=== PATIENT | female | born 1990 | race Caucasian/White ===

== ENCOUNTER 2018-05-03 15:34 | Outpatient (REF) | payer BC, SELFPAY ==
--- NOTE | 2018-05-03 13:50 | PAPFT_PTH ---
PATIENT: Myah Carver LOC: [facility] U#:[id number] AGE/SX: 28/F ROOM: RE05/03/[address]: TASHIA Beverly : 1990 BED: DIS: 05/03/2018 SPEC #: [id number] RECD: 05/03/18 17:25 STATUS: ASTON REQ #: [id number] AARON: 05/03/18 13:[address]: Maribel Euceda DEPT: [facility] Cytology RECD BY: Olga Luna ENTERED: 05/03/18 17:25 SP TYPE: PAPFT OTHR DR: Brittny Garza DNP Tissues: 1 - CX/ENDOCX FOR PAP SMEARS Procedures: PAP THIN PREP/UVM Screening HPV DNA PROBE Comments: [id number]
[2018-05-08 15:29] LABS: Chlamydia Result Negative; GC Result Negative; Specimen Description CERVICAL
== END 2018-05-03 15:54 ==
LOC: LBN 15:34
PROVIDERS: PCP Nurse Practitioner Gerontology; Visit Provider Nurse Practitioner Family
DX: Z11.3 Encounter for screening for infections with a predominantly sexual mode of transmission (principal); Z12.4 Encounter for screening for malignant neoplasm of cervix
CPT/HCPCS: 87491; 87591; 88142; 87624

== ENCOUNTER 2018-06-03 16:23 | Outpatient (REF) | payer OTHER, SELFPAY ==
--- NOTE | 2018-06-03 15:00 | CER_PTH ---
PATIENT: Myah Carver LOC: [facility] U#:[id number] AGE/SX: 28/F ROOM: RE06/03/[address]: Jaron Layne MD : 1990 BED: DIS: 06/03/2018 SPEC #: [id number] RECD: 06/03/18 17:01 STATUS: ASTON WREN #: [id number] AARON: 06/03/18 15:[address]: Jaron Layne DEPT: Surgical Specimen RECD BY: Olga Luna ENTERED: 06/03/18 17:02 SP TYPE: CER OTHR DR: Brittny Garza, ANGIE Tissues: 1 - CERVICAL BIOPSY 2 - CERVICAL BIOPSY 3 - ENDOCERVICAL BX/CURRETTE Procedures: GROSS AND MICRO LEVEL 4 P16 IPEX Comments: [id number]
== END 2018-06-03 16:43 ==
LOC: LBN 16:23
PROVIDERS: PCP Nurse Practitioner Gerontology; Visit Provider Obstetrics & Gynecology
DX: N87.1 Moderate cervical dysplasia (principal); R87.610 Atypical squamous cells of undetermined significance on cytologic smear of cervix (ASC-US); B97.7 Papillomavirus as the cause of diseases classified elsewhere
CPT/HCPCS: 88305; 88342

== ENCOUNTER 2019-02-27 01:10 | Outpatient (CLI) | payer OTHER, SELFPAY ==
[2019-02-27 12:39] LABS: Abs Immature Grans 0.03 k/cumm (0.0-0.09); Absolute Basophil Count 0.02 k/cumm (0.0-0.2); Absolute Eosinophil Count 0.25 k/cumm (0.0-0.7); Absolute Lymphocyte Count 1.96 k/cumm (1.2-3.4); Absolute Monocyte Count 0.62 k/cumm (0.11-0.7); Absolute Neutrophil Count 4.05 k/cumm (1.2-6.7); Basophils % 0.3; Eosinophils % 3.6; HCT 42.1 % (36.0-46.0); HGB 14.2 g/dL (12.0-15.5); Immature Grans % 0.4; Lymphocytes % 28.3; Mean Corp. HGB Concentration 33.7 g/dL (32.0-36.0); Mean Corpuscular Hemoglobin 32.1 pg (27.0-33.0); Mean Corpuscular Volume 95.2 fL (80-95); Mean Platelet Volume 10.2 fL (8.0-11.0); Monocytes % 8.9; Neutrophils % 58.5; Platelet Count 293 x1000/uL (130-400); RBC 4.42 m/cumm (4.00-5.20); RBC Distribution Width 12.8 % (11.7-14.6); White Blood Cell Count 6.93 k/cumm (4.4-10.8)
[2019-02-27 13:20] LABS: ALT 24 U/L (14-59); AST 20 U/L (15-37); Albumin 4.5 g/dL (3.4-5.0); Alkaline Phosphatase 65 U/L (46-116); Anion Gap 6.7 mmol/L (3-11); BUN 10 mg/dL (7-18); Bilirubin, Total 0.6 mg/dL (0.2-1.0); CO2 30.3 mmol/L (21.0-32.0); Calcium 9.1 mg/dL (8.5-10.1); Chloride 103 mmol/L (98-107); Glucose 88 mg/dL (70-100); Potassium 4.4 mmol/L (3.5-5.1); Sodium 140 mmol/L (136-145); TSH (W/Ref FT4) 2.94 uIU/mL (0.36-3.74)
== END 2019-02-27 01:30 ==
PROVIDERS: PCP Family Medicine; Visit Provider Family Medicine
DX: F32.9 Major depressive disorder, single episode, unspecified (principal); Z79.899 Other long term (current) drug therapy
CPT/HCPCS: 36415; 80053; 84443; 85025

== ENCOUNTER 2019-04-07 09:04 | Outpatient (REF) | payer OTHER, SELFPAY ==
--- NOTE | 2019-04-07 08:20 | CER_PTH ---
PATIENT: Myah Carver LOC: [facility] U#:[id number] AGE/SX: 28/F ROOM: RE04/07/[address]: Jaron Layne MD : 1990 BED: DIS: 04/07/2019 SPEC #: [id number] RECD: 04/07/19 12:44 STATUS: ASTON REYadiel #: [id number] AARON: 04/07/19 08:[address]: Jaron Layne DEPT: Surgical Specimen RECD BY: Olga Luna ENTERED: 04/07/19 12:45 SP TYPE: CER OTHR DR: Richie Salgado MD Tissues: 1 - CERVICAL LEEP/LOOP 2 - ENDOCERVICAL BX/CURRETTE Procedures: GROSS AND MICRO LEVEL 4 Comments: [id number]
--- NOTE | 2019-04-07 08:20 | PAPFT_PTH ---
PATIENT: Myah Carver LOC: [facility] U#:[id number] AGE/SX: 28/F ROOM: RE04/07/[address]: Jaron Layne MD : 1990 BED: DIS: 04/07/2019 SPEC #: [id number] RECD: 04/07/19 12:56 STATUS: ASTON REYadiel #: [id number] AARON: 04/07/19 08:[address]: Jaron Layne DEPT: [facility] Cytology RECD BY: Olga Luna ENTERED: 04/07/19 12:56 SP TYPE: PAPFT OTHR DR: Richie Salgado MD Tissues: 1 - CX/ENDOCX FOR PAP SMEARS Procedures: PAP THIN PREP/UVM Screening HPV DNA PROBE Comments: [id number]
== END 2019-04-07 09:24 ==
LOC: LBN 09:04
PROVIDERS: PCP Family Medicine; Visit Provider Obstetrics & Gynecology
DX: N87.1 Moderate cervical dysplasia (principal); N88.8 Other specified noninflammatory disorders of cervix uteri; Z12.4 Encounter for screening for malignant neoplasm of cervix
CPT/HCPCS: 88142; 88305; 87624; 88307

== ENCOUNTER 2019-07-09 07:01 | Emergency (ER) | payer OTHER, SELFPAY ==
[2019-07-09 07:19] VITALS: BP 111/56; PULSE 59; RESP 16; TEMP 36.7; O2SAT 100
[2019-07-09 07:23] LABS: Bilirubin Negative (Negative); Blood Negative (Negative); Clarity Clear (Clear); Glucose Negative (Negative); Ketones Negative (Negative); Leukocyte Esterase Negative (Negative); Nitrite Negative (Negative); Specific Gravity 1.025 (1.005-1.025); Urobilinogen 0.2 EU/dL (Up TO 0.2); pH 6.5 (5-8)
[2019-07-09 07:48] LABS: Abs Immature Grans 0.01 k/cumm (0.0-0.09); Absolute Basophil Count 0.01 k/cumm (0.0-0.2); Absolute Eosinophil Count 0.18 k/cumm (0.0-0.7); Absolute Monocyte Count 0.56 k/cumm (0.11-0.7); Absolute Neutrophil Count 2.88 k/cumm (1.2-6.7); Basophils % 0.2; Eosinophils % 3.4; HCT 40.1 % (36.0-46.0); HGB 13.3 g/dL (12.0-15.5); Immature Grans % 0.2 %; Lymphocytes % 31.8; Mean Corp. HGB Concentration 33.2 g/dL (32.0-36.0); Mean Corpuscular Volume 96.6 fL (80-95); Mean Platelet Volume 10.4 fL (8.0-11.0); Monocytes % 10.5; Neutrophils % 53.9; Platelet Count 216 x1000/uL (130-400); RBC 4.15 m/cumm (4.00-5.20); White Blood Cell Count 5.34 k/cumm (4.4-10.8)
[2019-07-09 08:01] LABS: ALT 19 U/L (14-59); AST 16 U/L (15-37); Albumin 3.7 g/dL (3.4-5.0); Alkaline Phosphatase 46 U/L (46-116); Anion Gap 5.6 mmol/L (3-11); BUN 14 mg/dL (7-18); Bilirubin, Total 0.4 mg/dL (0.2-1.0); CO2 29.4 mmol/L (21.0-32.0); CREATININE 0.83 mg/dL (0.55-1.02); Calcium 8.3 mg/dL (8.5-10.1); Chloride 105 mmol/L (98-107); Glucose 96 mg/dL (74-106); Lipase 72 U/L (73-393); Potassium 3.6 mmol/L (3.5-5.1); Sodium 140 mmol/L (136-145); Total Protein 6.4 g/dL (6.4-8.2)
--- NOTE | 2019-07-09 08:13 | W.ED.GENAD ---
Discharge Plan Disposition Patient Disposition: HOME Condition: Stable Discharge Details Chief Complaint: Abd Prob Clinical Impression: Hemorrhagic cyst of right ovary, Abdominal pain Primary Care Provider: Richie Salgado ED Provider: Gil Downs Home Meds and New Rx's Prescriptions: Continued prenat.vits,marcello,ewp-nlcr-uyujc tablet 1 tab PO DAILY RF: 0 cholecalciferol (vitamin D3) 25 mcg (1,000 unit) capsule 5,000 unit PO DAILY RF: 0 vitamin E (dl, acetate) 1,000 unit capsule 1,000 unit PO DAILY RF: 0 quetiapine 25 mg tablet 25 mg PO QHS Qty: 30 RF: 5 Aleyda-D 24 Hour 1 EACH tablet extended release 24 hr 1 tab-cap PO DAILY RF: 0 spironolactone 25 MG tablet 50 mg PO DAILY RF: 0 albuterol sulfate [ProAir HFA] 8.5 GM HFA aerosol inhaler 2 puff Inhalation Q4H PRN Qty: 1 RF: 3 norethindrone (contraceptive) 0.35 mg tablet 0.35 mg PO DAILY Qty: 84 RF: 3 Discharge Instructions Instructions: Ovarian Cyst (ED), Abdominal Pain (ED) Additional Instructions: Miux-eza-dqaqgoy medication such as Tylenol and/or Motrin as directed for discomfort. Please watch for new or worsening symptoms and return to the ER for any concerns. I do recommend you follow-up with your ROLLER OPERATOR on Sunday as already scheduled. Medical Decision Making 29-year-old female presents with lower abdominal pain intermittent for 1 week, worsening in nature. Reports that the pain is at times crampy and at other times sharp. She has never had any pain like this before. Examination reveals mild lower abdominal discomfort to moderate palpation but certainly nonsurgical in nature. She appears well, nontoxic. Differential includes but is not excluded to , ectopic , UTI, appendicitis, diverticulitis, PID, STD, ovarian cyst, ovarian torsion, pyelonephritis, renal stone. Will obtain routine laboratory values including CBC, CMP, urinalysis and . We will then reassess. We did discuss the value of a pelvic exam during her visit today, she is currently undecided as she is seeing a ROLLER OPERATOR provider on Sunday. Laboratory values resulted and were negative. Patient given 30 IV Toradol and will pursue ultrasound rather than CT as would like to avoid the patient's exposure to radiation if at all possible. Patient is agreeable to this plan. Upon reevaluation patient does report moderate relief with IV Toradol. Ultrasound reveals a 5.6 right ovarian hemorrhagic cyst with free fluid, no torsion. Discussed these findings with patient. We once again discussed the value of the pelvic exam here in the ER. Patient declines pelvic exam now and will await her ROLLER OPERATOR follow-up on Sunday. Given her ultrasound did reveal a hemorrhagic cyst, she is afebrile, white count is not elevated, and no vaginal discharge, STD-PID much less likely declining pelvic exam is reasonable in this case. We discussed the importance of returning to the ER for new or evolving symptoms, otherwise following up with her ROLLER OPERATOR on Sunday as already scheduled. We discussed nryv-ekx-osctulc Motrin and/or Tylenol for discomfort Medical Records Medical records reviewed: Yes I reviewed the patient's medical records. Imaging Data Radiologic Study: My impression: Pelvic, transvaginal. 5.6 cm right ovarian hemorrhagic cyst with free fluid, no torsion Lab Data Lab results reviewed: Yes I reviewed the patient's lab results. Lab results narrative: Laboratory Tests Range/Units 07/09/19 07/09/19 07/09/19 07:10 07:35 07:35 WBC (4.4-10.8) k/cumm 5.34 RBC (4.00-5.20) m/cumm 4.15 Hgb (12.0-15.5) g/dL 13.3 Hct (36.0-46.0) % 40.1 MCV (80-95) fL 96.6 H MCH (27.0-33.0) pg 32.0 MCHC (32.0-36.0) g/dL 33.2 RDW (11.7-14.6) % 13.0 Plt Count (130-400) x1000/uL 216 MPV (8.0-11.0) fL 10.4 Immature Gran % % 0.2 Neutrophils % 53.9 Lymphocytes % 31.8 Monocytes % 10.5 Eosinophils % 3.4 Basophils % 0.2 Absolute Neutrophils (1.2-6.7) k/cumm 2.88 Absolute Lymphocytes (1.2-3.4) k/cumm 1.70 Absolute Monocytes (0.11-0.7) k/cumm 0.56 Absolute Eosinophils (0.0-0.7) k/cumm 0.18 Absolute Basophils (0.0-0.2) k/cumm 0.01 Sodium (136-145) mmol/L 140 Potassium (3.5-5.1) mmol/L 3.6 Chloride (98-107) mmol/L 105 Carbon Dioxide (21.0-32.0) mmol/L 29.4 Anion Gap (3-11) mmol/L 5.6 BUN (7-18) mg/dL 14 Creatinine (0.55-1.02) mg/dL 0.83 Estimated GFR/1.73 m2 (mL/min/1.73m2) >= 60.00 Glucose (74-106) mg/dL 96 Calcium (8.5-10.1) mg/dL 8.3 L Total Bilirubin (0.2-1.0) mg/dL 0.4 AST (15-37) U/L 16 ALT (14-59) U/L 19 Alkaline Phosphatase (46-116) U/L 46 Total Protein (6.4-8.2) g/dL 6.4 Albumin (3.4-5.0) g/dL 3.7 Lipase (73-393) U/L 72 Urine Color (Yellow) Yellow Urine Clarity (Clear) Clear Urine pH (5-8) 6.5 Ur Specific [place] (1.005-1.025) 1.025 Urine Protein (Negative) mg/dL Negative Urine Ketones (Negative) mg/dL Negative Urine Blood (Negative) Negative Urine Nitrite (Negative) Negative Urine Bilirubin (Negative) Negative Urine Urobilinogen (Up TO 0.2) EU/dL 0.2 Ur Leukocyte Esterase (Negative) Negative Urine Glucose (Negative) mg/dL Negative HPI General Mode of arrival: ambulatory. Date/Time Provider Initiated Documentation: 07/09/19 07:54. Limitations to Documentation: no limitations. Information obtained by: patient and family. HPI Narrative: 29-year-old female with a history of depression, migraine, asthma, LEEP procedure last March, presents to the ER today with abdominal pain, lower, intermittent for 1 week. It has increased in severity, moderate now, and in higher frequency over the past 3-4 days. She reports nausea but no vomiting. She reports this morning she was attempting to use the restroom when she had increased pain, felt cold and sweaty, felt like she could pass out but did not pass out. She has an appointment with her ROLLER OPERATOR on Sunday. She reports that her last menstrual cycle was early this month but unsure of the exact date, likely not due for another menstrual cycle for another week or so. She denies any vaginal bleeding or discharge. Denies any history of STD. She has never been . Related Data Home Medications Medication Instructions Recorded Confirmed Aleyda-D 24 Hour 1 tab-cap PO DAILY tab-cap 11/06/13 06/25/19 spironolactone 50 mg PO DAILY tab-cap 10/12/14 06/25/19 albuterol sulfate [ProAir HFA] 2 puff INHALATION Q4H PRN #1 09/01/16 06/25/19 inhaler prenat.vits,marcello,zmw-yzac-wmcho 1 tab PO DAILY 05/03/18 06/25/19 cholecalciferol (vitamin D3) 25 5,000 unit PO DAILY cap 06/25/19 06/25/19 mcg (1,000 unit) capsule quetiapine 25 mg tablet 25 mg PO QHS #30 tab 06/25/19 06/25/19 vitamin E (dl, acetate) 1,000 unit 1,000 unit PO DAILY 06/25/19 06/25/19 capsule norethindrone (contraceptive) 0.35 0.35 mg PO DAILY #84 tab 06/30/19 mg tablet Previous Rx's Medication Instructions Recorded quetiapine 25 mg tablet 25 mg PO QHS #30 tab 06/25/19 norethindrone (contraceptive) 0.35 0.35 mg PO DAILY #84 tab 06/30/19 mg tablet Allergies Allergy/AdvReac Type Severity Reaction Status Date / Time amoxicillin Allergy rash Unverified 06/25/19 11:04 General Stated Complaint: Abd Prob WENDY: 3 Review of Systems Constitutional Constitutional: Denies fatigue, Denies fever(s) and Reports headache(s) (History of migraines, none now) ENT Ears, Nose, Mouth, and Throat: Reports headache(s) (History of migraines, none now) Cardiovascular Cardiovascular: Denies chest pain and Denies dyspnea Respiratory Respiratory: Denies dyspnea Gastrointestinal Gastrointestinal: Reports abdominal pain, Denies constipation, Denies diarrhea, Reports nausea and Denies vomiting Genitourinary Genitourinary: Denies abnormal menses, Denies abnormal vaginal bleeding, Denies hematuria, Denies urinary frequency, Denies genital pruritis, Denies genital lesions, Denies dysuria, Denies flank pain, Denies urinary urgency and Denies vaginal discharge Musculoskeletal Musculoskeletal: Reports back pain Integumentary/Breasts Skin/Breast: Denies rash Neurologic Neurologic: Reports headache(s) (History of migraines, none now) Endocrine Endocrine: Denies fatigue [facility] Medical History Asthma (Acute 09/18/12) intermittent-triggers are cats, pollen, dust and smoke Closed fracture of lower leg (Resolved) 06/15-right tib/fib followed by removal of cyst Closed fracture of vertebral column (Resolved) on neck-healed no problems Contraception (Acute 05/01/16) Depression (Chronic) Deviated nasal septum (Acute 10/01/12) 09/25/12-sabrina Lu Heart murmur (Acute) functional 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 Grandmother Neoplasm BLADDER Family History Scoliosis Spine degeneration Dementia Hyperlipidemia Social History Smoking/Tobacco Use Status: Never Alcohol Intake: current Alcohol Intake frequency: a few times a week Drug use: Never Substance use type: does not use Do you feel safe at home: Yes Do you feel safe in your relationship?: Yes Exam Const General: cooperative, healthy appearing, comfortable and no acute distress Orientation: alert and awake [facility] Head: normal to inspection, normocephalic and atraumatic Mouth: moist mucous membranes Eyes Conjunctivae: conjunctivae normal Neck Neck: normal visual inspection, trachea midline and supple Resp Effort & Inspection: normal respiratory effort and able to speak in complete sentences Auscultation: clear to auscultation bilaterally Cardio Rate: regular rate Rhythm: regular rhythm GI Inspection: normal to inspection Palpation: not soft, not firm, no guarding, not rigid and tender (Diffuse mild lower abdominal discomfort without rebound tenderness) Auscultation: normal bowel sounds Back/Spine/Pelvis Back: No back tenderness Skin General skin exam: no rashes or lesions noted Neuro General: alert, awake, moves all extremities and no focal motor deficits Motor: muscle tone normal throughout Sensory Exam: no sensory deficits noted Extrem General: normal to inspection Psych Appearance: grossly normal Mental Status: mental status grossly normal Course Vital Signs Vital signs: Vital Signs Temperature 36.7 C 07/09/19 07:19 Pulse 59 L 07/09/19 07:19 Respiratory Rate 16 07/09/19 07:19 Blood Pressure 111/56 L 07/09/19 07:19 Pulse Oximetry 100 07/09/19 07:19 Temperature 36.7 C 07/09/19 07:19 Temperature Source Oral 07/09/19 07:19 Pulse 59 L 07/09/19 07:19 Respiratory Rate 16 07/09/19 07:19 Respiratory Effort Non-Labored 07/09/19 07:22 Blood Pressure 111/56 L 07/09/19 07:19 Blood Pressure Position Supine 07/09/19 07:19 Pulse Oximetry 100 07/09/19 07:19 Oxygen Delivery Method Room Air 07/09/19 07:19 Oxygen Flow Rate 0 07/09/19 07:19 Pain Level 4 07/09/19 07:19 Lab/Test Results Lab/Test Results: Laboratory Tests Range/Units 07/09/19 07/09/19 07/09/19 07:10 07:35 07:35 WBC (4.4-10.8) k/cumm 5.34 RBC (4.00-5.20) m/cumm 4.15 Hgb (12.0-15.5) g/dL 13.3 Hct (36.0-46.0) % 40.1 MCV (80-95) fL 96.6 H MCH (27.0-33.0) pg 32.0 MCHC (32.0-36.0) g/dL 33.2 RDW (11.7-14.6) % 13.0 Plt Count (130-400) x1000/uL 216 MPV (8.0-11.0) fL 10.4 Immature Gran % % 0.2 Neutrophils % 53.9 Lymphocytes % 31.8 Monocytes % 10.5 Eosinophils % 3.4 Basophils % 0.2 Absolute Neutrophils (1.2-6.7) k/cumm 2.88 Absolute Lymphocytes (1.2-3.4) k/cumm 1.70 Absolute Monocytes (0.11-0.7) k/cumm 0.56 Absolute Eosinophils (0.0-0.7) k/cumm 0.18 Absolute Basophils (0.0-0.2) k/cumm 0.01 Sodium (136-145) mmol/L 140 Potassium (3.5-5.1) mmol/L 3.6 Chloride (98-107) mmol/L 105 Carbon Dioxide (21.0-32.0) mmol/L 29.4 Anion Gap (3-11) mmol/L 5.6 BUN (7-18) mg/dL 14 Creatinine (0.55-1.02) mg/dL 0.83 Estimated GFR/1.73 m2 (mL/min/1.73m2) >= 60.00 Glucose (74-106) mg/dL 96 Calcium (8.5-10.1) mg/dL 8.3 L Total Bilirubin (0.2-1.0) mg/dL 0.4 AST (15-37) U/L 16 ALT (14-59) U/L 19 Alkaline Phosphatase (46-116) U/L 46 Total Protein (6.4-8.2) g/dL 6.4 Albumin (3.4-5.0) g/dL 3.7 Lipase (73-393) U/L 72 Urine Color (Yellow) Yellow Urine Clarity (Clear) Clear Urine pH (5-8) 6.5 Ur Specific [place] (1.005-1.025) 1.025 Urine Protein (Negative) mg/dL Negative Urine Ketones (Negative) mg/dL Negative Urine Blood (Negative) Negative Urine Nitrite (Negative) Negative Urine Bilirubin (Negative) Negative Urine Urobilinogen (Up TO 0.2) EU/dL 0.2 Ur Leukocyte Esterase (Negative) Negative Urine Glucose (Negative) mg/dL Negative POC- Test(urine) Negative
--- NOTE | 2019-07-09 08:15 | DI.US_ITS ---
EXAM: US PELVIS TRANSVAGINAL CLINICAL HISTORY: Lower abd pain x 1 week, worsening TECHNIQUE: Ultrasound performed using standard protocol. COMPARISON: PELVIS ULTRASOUND from 06/08/2008 FINDINGS: The uterus measures 7.0 x 4.1 x 4.9 cm and is retroverted. The endometrial stripe measures 7 millime ters in thickness. There is a 5.6 centimeter cyst on the right ovary containing debris which may rep resent a hemorrhagic cyst. There is free fluid in the cul-de-sac as well as free fluid near the righ t adnexa. The left ovary appears normal. There is no evidence of torsion of either ovary. IMPRESSION: 5.6 centimeter hemorrhagic cyst of the right ovary and pelvic free fluid. No evidence of torsion. DATA REPOSITORY:
[2019-07-09] MEDS: Ketorolac 30 MG/ML VIAL IVP (08:59)
[2019-07-09 09:36] VITALS: BP 109/46; PULSE 65; RESP 14; TEMP 37.1; O2SAT 100
== END 2019-07-09 09:40 | disposition home or self-care (01) ==
PROVIDERS: Emergency Provider Physician Assistant; PCP Family Medicine
DX: R10.30 Lower abdominal pain, unspecified (principal); N83.201 Unspecified ovarian cyst, right side
CPT/HCPCS: 36415; 80053; 81025; 83690; 96374; 99284; 76830; 76856; 81003; 85025; 99285; J1885

== ENCOUNTER 2019-07-11 09:48 | Outpatient (REF) | payer OTHER, SELFPAY ==
[2019-07-14 13:31] LABS: Chlamydia Result Negative (Negative); GC Result Negative (Negative)
== END 2019-07-11 10:08 ==
LOC: LBN 09:48
PROVIDERS: PCP Family Medicine; Visit Provider Nurse Practitioner Family
DX: Z11.3 Encounter for screening for infections with a predominantly sexual mode of transmission (principal)
CPT/HCPCS: 87491; 87591

== ENCOUNTER 2019-09-15 00:27 | Outpatient (CLI) | payer OTHER, SELFPAY ==
--- NOTE | 2019-09-15 | DI.US_ITS ---
EXAM: US PELVIS AND TRANSVAGINAL CLINICAL HISTORY: F/U RT HEMORRHAGIC CYST, N83.201 TECHNIQUE: Ultrasound of the pelvic, both abdominal and transvaginal was performed using standard pr otocol. COMPARISON: No exams were available for comparison FINDINGS: KIDNEYS: Kidneys are symmetric in size. No evidence of renal calculi. No evidence of hydronephrosis. No renal mass or cyst identified. UTERUS: Position: Retroverted. Size: 6.1 x 3.7 x 4.6 cm Endometrium: 0.4 cm. Normal for patient's menstrual status. Myometrium: Unremarkable. Cervix: Unremarkable. OVARIES: Right: 3.1 x 2.6 x 2.2 cm Cyst or mass: None. The previously noted hemorrhagic cyst has resolved. Left: 3.1 x 3.2 x 2.5 cm Cyst or mass: 2 cm dominant follicle. DOPPLER: Color: Symmetric and uniform flow to both ovaries. No hyperemia. Duplex: Normal ovarian arterial waveforms visualized. CUL-DE-SAC: Free fluid: Trace. IMPRESSION: 1. Normal sonographic appearance of the kidneys. 2. Normal-appearing uterus with endometrial stripe within normal limits. 3. Resolution of right ovarian hemorrhagic cyst.. DATA REPOSITORY:
== END 2019-09-15 00:47 ==
PROVIDERS: PCP Family Medicine; Visit Provider Nurse Practitioner Family
DX: N83.291 Other ovarian cyst, right side (principal); N83.02 Follicular cyst of left ovary
CPT/HCPCS: 76830; 76856

== ENCOUNTER 2020-03-08 16:53 | Emergency (ER) | payer OTHER, SELFPAY ==
--- NOTE | 2020-03-08 16:57 | ED.GENADUL_ITS ---
Discharge Plan Disposition Patient Disposition: HOME Condition: Good Discharge Details Clinical Impression: Lightheaded Primary Care Provider: Richie Salgado ED Provider: Lindsey Novoa Home Meds and New Rx's Prescriptions: Continued prenat.vits,marcello,lbo-hplt-dsscl tablet 1 tab PO DAILY RF: 0 cholecalciferol (vitamin D3) 25 mcg (1,000 unit) capsule 5,000 unit PO DAILY RF: 0 vitamin E (dl, acetate) 1,000 unit capsule 1,000 unit PO DAILY RF: 0 quetiapine 25 mg tablet 25 mg PO QHS Qty: 30 RF: 5 norethindrone (contraceptive) 0.35 mg tablet 0.35 mg PO DAILY Qty: 84 RF: 2 Aleyda-D 24 Hour 1 EACH tablet extended release 24 hr 1 tab-cap PO DAILY RF: 0 spironolactone 25 MG tablet 50 mg PO DAILY RF: 0 albuterol sulfate [ProAir HFA] 8.5 GM HFA aerosol inhaler 2 puff Inhalation Q4H PRN Qty: 1 RF: 3 bupropion HCl 100 mg tablet sustained-release 12 hr 100 mg PO BID Qty: 30 RF: 11 Discharge Instructions Additional Instructions: Please encourage water intake. The area palpated on her neck is consistent with normal anatomy. Please not press on her neck as this is compressing your carotid artery. If you develop headache, visual changes, weakness, sensory changes or new/worsening symptom please seek care urgently once again. As discussed, try the muscle relaxing techniques to help with your chronic left- sided neck pain. Please follow-up with primary care in the next 1 to 2 weeks for reevaluation. Referrals: Richie Salgado [Primary Care Provider] - Discharge Data Discharge Date/Time-TO BE ENTERED AT DEPARTURE: 03/08/20 18:35 Medical Decision Making Patient was [id number] female presents due to complaint of lump in her neck. On exam this is consistent with with a palpate the anterior aspect of her cervical spine. I am able to feel the exact same small focal area of bone on the contralateral side. She has no tenderness with this. I not see any evidence to suggest infection. States that while she was palpating this driving she became lightheaded. When patient was pushing on this and demonstrating for me, she was pressing over the area of her carotid. This is likely what caused her symptoms. Her symptoms have since resolved. She does report that she has chronic lightheadedness associated with being cold. Her neurologic exam is intact. I see no instigation that she has acute infection. We did discuss safer way for her to massage her neck. I did offer further work-up for her current symptoms and she would like to hold off at this point as she is currently feeling at her baseline. I encourage close follow-up with primary care. All of her questions and concerns were addressed and she is in agreement this plan. Return precautions given. HPI General Mode of arrival: ambulatory . Date/Time Provider Initiated Documentation: 03/08/20 16:57 . Limitations to Documentation: no limitations . Information obtained by: patient and RN notes reviewed . HPI Narrative: Patient is a pleasant 29-year-old female presenting today with concern for lump in my neck and lightheadedness. She reports that she has been seeing physical therapy for tightness along the left side of her neck for several years. Reports that they have advised massage of her neck. She states that she has been doing this and today while driving noted a bony lump. While massaging this, she became lightheaded and noted tingling in her hands. Symptoms began to resolve palpation over the anterior aspect of her neck. Currently reports that she is feeling lightheaded but states that this is baseline and always occurs when she is cold. Related Data Home Medications Medication Instructions Recorded Confirmed Aleyda-D 24 Hour 1 tab-cap PO DAILY tab-cap 11/06/13 02/24/20 spironolactone 50 mg PO DAILY tab-cap 10/12/14 02/24/20 albuterol sulfate [ProAir HFA] 2 puff INHALATION Q4H PRN #1 09/01/16 02/24/20 inhaler prenat.vits,marcello,uwt-jncn-vhxyh 1 tab PO DAILY 05/03/18 02/24/20 cholecalciferol (vitamin D3) 25 5,000 unit PO DAILY cap 06/25/19 02/24/20 mcg (1,000 unit) capsule quetiapine 25 mg tablet 25 mg PO QHS #30 tab 06/25/19 02/24/20 vitamin E (dl, acetate) 450 mg 1,000 unit PO DAILY 06/25/19 02/24/20 (1,000 unit) capsule norethindrone (contraceptive) 0.35 0.35 mg PO DAILY #84 tab 09/15/19 02/24/20 mg tablet bupropion HCl 100 mg tablet,12 hr 100 mg PO BID #30 tab 03/08/20 sustained-release Previous Rx's Medication Instructions Recorded quetiapine 25 mg tablet 25 mg PO QHS #30 tab 06/25/19 norethindrone (contraceptive) 0.35 0.35 mg PO DAILY #84 tab 09/15/19 mg tablet bupropion HCl 100 mg tablet,12 hr 100 mg PO BID #30 tab 03/08/20 sustained-release Allergies Allergy/AdvReac Type Severity Reaction Status Date / Time amoxicillin Allergy rash Verified 02/24/20 15:05 General WENDY: 3 Review of Systems Constitutional Constitutional: Reports as per HPI, Denies chills, Denies fatigue, Denies fever(s), Denies frequent falls, Denies headache(s), Denies snoring and Denies weakness Eyes Eyes: Reports as per HPI, Denies blurry vision, Denies change in vision and Reports photophobia ENT Ears, Nose, Mouth, and Throat: Denies vertigo, Denies headache(s) and Denies neck pain Cardiovascular Cardiovascular: Reports as per HPI, Denies chest pain, Denies lightheadedness, Denies radiating jaw, neck or arm pain, Denies dyspnea and Denies dyspnea on exertion Respiratory Respiratory: Reports as per HPI, Denies chest congestion, Denies cough, Denies dyspnea, Denies dyspnea on exertion, Denies snoring, Denies stridor and Denies wheezing Gastrointestinal Gastrointestinal: Reports as per HPI, Denies abdominal pain, Denies change in bowel habits, Denies nausea and Denies vomiting Musculoskeletal Musculoskeletal: Reports as per HPI, Denies back pain, Denies myalgias, Denies muscle cramps, Denies neck pain, Denies numbness and Reports tingling Integumentary/Breasts Skin/Breast: Reports as per HPI and Denies rash Neurologic Neurologic: Reports as per HPI, Denies abnormal movements, Denies abnormal speech, Denies behavioral changes, Denies confusion, Denies vertigo, Denies freq uent falls, Denies headache(s), Denies localized weakness, Denies numbness, Denies sensory deficit, Reports tingling and Denies weakness Psychiatric Psychiatric: Denies behavioral changes and Denies confusion Endocrine Endocrine: Denies fatigue Allergic/Immunologic Allergic/Immunologic: Denies wheezing [facility] Medical History (Updated 03/08/20 @ 18:13 by RAHUL Chester) Asthma (09/18/12) intermittent-triggers are cats, pollen, dust and smoke Closed fracture of lower leg 06/15-right tib/fib followed by removal of cyst Closed fracture of vertebral column on neck-healed no problems Contraception (05/01/16) Depression Deviated nasal septum (10/01/12) 09/25/12-sabrina Lu Heart murmur functional 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 Grandmother Neoplasm BLADDER Family History Scoliosis Spine degeneration Dementia Hyperlipidemia Social History Smoking/Tobacco Use Status: Never Alcohol Intake: current Alcohol Intake frequency: a few times a week Drug use: Never Substance use type: does not use Do you feel safe at home: Yes Do you feel safe in your relationship?: Yes Exam Const General: cooperative, healthy appearing, uncomfortable, no acute distress, well developed and well groomed Nutritional Appearance: average body habitus and well nourished Orientation: alert, awake and oriented x3 HENMT Head: normal to inspection, no palpable skull fracture, normocephalic and atraumatic Ears: hearing grossly normal bilaterally, external ears normal and TM's normal bilaterally General nose exam: external nose normal Mouth: oral mucosae normal and moist mucous membranes Throat: posterior oropharynx normal Eyes General: appearance normal, both eyes and all related structures Alignment and Position: alignment normal Periorbital: periorbital findings normal Eyelids: eyelids normal Sclera: sclerae normal Cornea: corneas normal Pupils: PERRL EOM: EOM intact bilaterally Neck Neck: normal visual inspection, full ROM, no lymphadenopathy, no meningeal signs and other (Able to palpate the anterior aspect of the patient's spine bilaterally) Resp Effort & Inspection: normal respiratory effort, able to speak in complete sentences and no respiratory distress Auscultation: clear to auscultation bilaterally, no rales, no rhonchi and no wheezes Cardio Rate: regular rate Rhythm: regular rhythm Heart Sounds: S1 normal and S2 normal GI Inspection: normal to inspection and non-distended Palpation: soft, no hepatosplenomegaly, not firm, no guarding, not rigid and nontender Percussion: normal to percussion Auscultation: normal bowel sounds Back/Spine/Pelvis Cervical Spine: normal cervical lordosis and cervical ROM normal Skin General skin exam: no rashes or lesions noted Neuro General: patient alert, patient awake and patient oriented x3 Cranial Nerves: CN's II-XI intact bilaterally Cognition: normal cognition Speech: speech normal Gait: normal gait Motor: muscle tone normal throughout, strength 5/5 throughout, no pronator drift, no movement abnormalities noted and no fasciculations Sensory Exam: no sensory deficits noted Coordination: wkggvz-zj-mqvh test normal, clei-vz-lksx test normal, Romberg test normal, tandem gait normal and Does not sway with eyes open Extrem General: normal to inspection, capillary refill normal, no pedal edema and no calf tenderness Psych Appearance: grossly normal and well kempt Mental Status: mental status grossly normal Speech and Movement: speech and movement normal
[2020-03-08 17:07] VITALS: BP 133/72; PULSE 74; RESP 16; TEMP 36.4; O2SAT 99
== END 2020-03-08 18:35 | disposition home or self-care (01) ==
LOC: ER 18:26
PROVIDERS: Emergency Provider Physician Assistant; PCP Family Medicine
DX: R42 Dizziness and giddiness (principal)
CPT/HCPCS: 99281

== ENCOUNTER 2020-07-05 14:06 | Outpatient (CLI) | payer OTHER, SELFPAY ==
[2020-07-05 16:09] LABS: HCT 40.6 % (36.0-46.0); HGB 13.4 g/dL (11.2-15.7); MCH 32.1 pg (27.0-33.0); MCV 97.1 fL (80-95); MPV 9.7 fL (8.0-11.0); Platelet Count 256 10^3/uL (130-400); RBC 4.18 10^6/uL (3.93-5.22); RDW 12.5 % (11.7-14.6); RDW-SD 44.6 fL; WBC 6.53 10^3/uL (4.4-10.8)
[2020-07-05 17:28] LABS: Vitamin D 25 Total 84.4 ng/ml (30-100)
[2020-07-05 17:29] LABS: Anion Gap 8.9 mmol/L (3-11); BUN 13 mg/dL (7-18); CO2 28.1 mmol/L (21.0-32.0); CREATININE 0.7 mg/dL (0.55-1.02); Calcium 9.7 mg/dL (8.5-10.1); Calculated LDL 105 mg/dL (<100); Chloride 101 mmol/L (98-107); Cholesterol 225 mg/dL (<200); Ferritin 131 ng/mL (8-252); Glucose 91 mg/dL (74-106); HDL Cholesterol 113 mg/dL (40-60); Potassium 3.9 mmol/L (3.5-5.1); Sodium 138 mmol/L (136-145); TSH 2.95 uIU/mL (0.36-3.74); Triglyceride 38 mg/dL (<150)
[2020-07-05 17:49] LABS: FREE T4 0.96 ng/dL (0.76-1.46)
== END 2020-07-05 14:07 | disposition home or self-care (01) ==
LOC: LBO 14:06
PROVIDERS: PCP Family Medicine; Visit Provider Nurse Practitioner Family
DX: Z00.00 Encounter for general adult medical examination without abnormal findings (principal); F32.9 Major depressive disorder, single episode, unspecified; E55.9 Vitamin D deficiency, unspecified
CPT/HCPCS: 36415; 80048; 80061; 82306; 85027; 82728; 84439; 84443

== ENCOUNTER 2020-07-05 17:22 | Outpatient (REF) | payer OTHER, SELFPAY ==
--- NOTE | 2020-07-05 15:45 | PAPFT_PTH ---
PATIENT: Myah Carver LOC: [facility] U#:[id number] AGE/SX: 30/F ROOM: RE07/05/[address]: TASHIA Beverly : 1990 BED: DIS: 07/05/2020 SPEC #: [id number] RECD: 07/05/20 18:23 STATUS: ASTON REQ #: [id number] AARON: 07/05/20 15:[address]: Maribel Euceda DEPT: [facility] Cytology RECD BY: Olga Luna ENTERED: 07/05/20 18:23 SP TYPE: PAPFT OTHR DR: Richie Salgado MD Tissues: 1 - CX/ENDOCX FOR PAP SMEARS Procedures: PAP THIN PREP/[facility] Screening Comments: [id number]
== END 2020-07-05 17:23 | disposition home or self-care (01) ==
LOC: LBN 17:22
PROVIDERS: PCP Family Medicine; Visit Provider Nurse Practitioner Family
DX: Z12.4 Encounter for screening for malignant neoplasm of cervix (principal)
CPT/HCPCS: 88142

== ENCOUNTER 2020-09-16 14:09 | Outpatient (CLI) | payer OTHER, SELFPAY ==
--- NOTE | 2020-09-16 09:15 | DI.RAD_ITS ---
Exam(s) XR RIBS LT W PA LAT CHEST EXAM: XR RIBS LT W PA LAT CHEST CLINICAL HISTORY: left rib pain, pleurodynia, R07.81 TECHNIQUE: COMPARISON: No exams were available for comparison FINDINGS: PA and lateral views of the chest and 2 additional views of the left ribs were obtained. Heart is no t enlarged and the lungs are clear and well expanded. No pleural effusion. No rib abnormality seen. IMPRESSION: Negative examination of the chest and ribs. RADIATION DOSE DELIVERED: Total DLP
== END 2020-09-16 14:29 ==
LOC: DI 14:12
PROVIDERS: PCP Nurse Practitioner Family; Visit Provider Nurse Practitioner Family
DX: R07.81 Pleurodynia (principal)
CPT/HCPCS: 71046; 71100

== ENCOUNTER 2021-05-12 03:12 | Outpatient (CLI) | payer OTHER, SELFPAY ==
[2021-05-12 17:36] LABS: TSH (W/Ref FT4) 2.48 uIU/mL (0.36-3.74)
== END 2021-05-12 03:13 | disposition home or self-care (01) ==
LOC: LBO 03:12
PROVIDERS: PCP Nurse Practitioner Family; Visit Provider Nurse Practitioner Family
DX: N92.6 Irregular menstruation, unspecified (principal)
CPT/HCPCS: 36415; 84443

== ENCOUNTER 2022-01-26 16:44 | Outpatient (REF) | payer OTHER, SELFPAY ==
--- NOTE | 2022-01-26 15:50 | PAPFT_PTH ---
PATIENT: Myah Carver LOC: [facility] U#:[id number] AGE/SX: 31/F ROOM: RE01/26/[address]: Ana Lopez MD : 1990 BED: DIS: 01/26/2022 SPEC #: [id number] RECD: 01/26/22 18:24 STATUS: ASTON REYadiel #: [id number] AARON: 01/26/22 15:[address]: Ana Lopez DEPT: ON LICENSE OF [facility] Cytology RECD BY: Olga Luna ENTERED: 01/26/22 18:24 SP TYPE: PAPFT MELISSA DR: TASHIA Yin Tissues: 1 - CX/ENDOCX FOR PAP SMEARS Procedures: PAP THIN PREP/[facility] Screening Comments: [id number]
== END 2022-01-26 16:45 | disposition home or self-care (01) ==
LOC: LBN 16:44
PROVIDERS: PCP Nurse Practitioner Family; Visit Provider Obstetrics & Gynecology
DX: Z12.4 Encounter for screening for malignant neoplasm of cervix (principal)
CPT/HCPCS: 88142

== ENCOUNTER 2023-09-10 09:23 | Outpatient (CLI) | payer OTHER, SELFPAY ==
[2023-09-10 12:31] LABS: Absolute Basophil Count 0.02 10^3/uL (0.0-0.2); Absolute Eosinophil Count 0.14 10^3/uL (0.0-0.7); Absolute Lymphocyte Count 1.54 10^3/uL (1.2-3.4); Absolute Monocyte Count 0.46 10^3/uL (0.1-0.8); Absolute Neutrophil Count 1.19 10^3/uL (1.2-6.7); Basophils % 0.6; Eosinophils % 4.2; HCT 42.7 % (36.0-46.0); MCH 31.3 pg (27.0-33.0); MCHC 32.8 % (32.0-36.0); MCV 96 fL (80-95); MPV 9.4 fL (8.0-11.0); Monocytes % 13.7; Neutrophils % 35.5; Platelet Count 252 10^3/uL (130-400); RBC 4.47 10^6/uL (3.93-5.22); RDW 12.4 % (11.7-14.6); WBC 3.35 10^3/uL (4.4-10.8)
[2023-09-10 12:46] LABS: ESR 1 mm/hr (0-20)
[2023-09-10 13:13] LABS: ALT 29 U/L (14-59); AST 25 U/L (15-37); Albumin 4.2 g/dL (3.4-5.0); Alkaline Phosphatase 46 U/L (46-116); Anion Gap 8.7 mmol/L (3-11); BUN 9 mg/dL (7-18); Bilirubin, Total 0.6 mg/dL (0.2-1.0); CO2 28.3 mmol/L (21.0-32.0); CREATININE 0.7 mg/dL (0.55-1.02); Calcium 8.8 mg/dL (8.5-10.1); Chloride 103 mmol/L (98-107); Estimated GFR 118.51 (mL/min/1.73m2); Ferritin 80 ng/mL (8-252); Glucose 73 mg/dL (74-106); Potassium 3.7 mmol/L (3.5-5.1); Sodium 140 mmol/L (136-145); TSH (W/Ref FT4) 2.08 uIU/mL (0.36-3.74); Total Protein 7.7 g/dL (6.4-8.2)
[2023-09-10 13:14] LABS: C-Reactive Protein < 0.50 mg/dL (<or=0.5)
[2023-09-10 13:19] LABS: Vitamin D 25 Total 63.3 ng/mL (30-100)
[2023-09-10 14:12] LABS: Hemoglobin A1C 4.9 % (<5.7)
[2023-09-11 11:01] LABS: Lyme Ab w Rflx to Lyme Confirm Negative (Negative)
[2023-09-12 14:47] LABS: Hemoglobinopathy Interpretat (See Note)
[2023-09-13 09:54] LABS: Anaplasma phagocytophilum Negative (Negative); B. miyamotoi PCR Negative (Negative); Babesia divergens/MO-1 Negative (Negative); Babesia duncani Negative (Negative); Babesia microti Negative (Negative); Ehrlichia chaffeensis Negative (Negative); Ehrlichia ewingii/canis Negative (Negative); Ehrlichia muris eauclairensis Negative (Negative)
== END 2023-09-10 09:24 | disposition home or self-care (01) ==
LOC: LOS 09:23
PROVIDERS: PCP Nurse Practitioner Family; Referring Provider Nurse Practitioner Family; Visit Provider Nurse Practitioner Family
DX: R53.83 Other fatigue (principal); Z83.2 Family history of diseases of the blood and blood-forming organs and certain disorders involving the immune mechanism
CPT/HCPCS: 36415; 80053; 82306; 85652; 87798; 82728; 83020; 83036; 84443; 85025; 86140; 86618